=== PATIENT | female | born 1935 | race American Indian/Alaskan Native ===

== ENCOUNTER 2016-09-16 20:40 | Emergency (ER) | payer MEDICARE ==
[2016-09-16] MEDS ORDERED: MORPHINE IV ONE (21:51)
[2016-09-16] MEDS ORDERED: ZOFRAN IV ONE (21:51)
--- NOTE | 2016-09-16 21:57 | Emergency Department Report ---
ED Headache HPI - General Chief Complaint: Headache Stated Complaint: HEADACHE Time Seen by Provider: 09/16/16 21:51 Source: patient, family Exam Limitations: no limitations - History of Present Illness Initial Comments: Patient stated that her headache as noted on the right side she has a diagnosis of trigeminal neuralgia back in the . She stated that her headache is similar to what she used to have. Timing/Duration: 4-6 hours Quality: moderate Recent Head Trauma: chronic headaches Allergies/Adverse Reactions: Allergies No Known Allergies Allergy (Verified 09/15/15 15:02) Home Medications: Ambulatory Orders hydrOXYzine HCL [Atarax] 10 mg PO Q8H PRN #14 tablet 11/21/14 predniSONE [Deltasone] 20 mg PO BID 5 Days 11/21/14 Levofloxacin [Levaquin TAB] 500 mg PO QDAY #7 tablet 08/27/15 metroNIDAZOLE [Flagyl TAB] 500 mg PO Q12HR #7 tab 08/27/15 Lisinopril 40 mg PO DAILY 09/15/15 Omeprazole 20 mg PO DAILY 09/15/15 Simvastatin 40 mg PO DAILY 09/15/15 Biotin 1 tab PO DAILY 09/18/15 Centrum Silver Tablet 1 tab PO DAILY 09/18/15 Ondansetron [Zofran Odt] 4 mg PO Q4-6H PRN #14 tab.rapdis 09/16/16 carBAMazepine [TEGretol] 100 mg PO Q12H #30 tab.chew 09/16/16 oxyCODONE /ACETAMINOPHEN [Percocet 5/325] 1 tab PO Q6HR PRN #10 tablet 09/16/16 ED Review of Systems ROS: Stated complaint: HEADACHE Other details as noted in HPI Comment: All other systems reviewed and negative Constitutional: denies: chills, fever Eyes: denies: eye pain, vision change ENT: denies: dental pain Respiratory: denies: cough, shortness of breath Cardiovascular: denies: chest pain, palpitations Gastrointestinal: denies: abdominal pain, nausea, vomiting Neurological: headache. denies: weakness, numbness, paresthesias, confusion, abnormal gait ED Past Medical Hx - Past Medical History Hx Hypertension: Yes ((takes lisinopril) high cholesterol ) Hx GERD: Yes Hx Headaches / Migraines: Yes (Trigeminal neuralgia) Hx HIV: No Additional medical history: HIGH CHOLESTEROL - Surgical History Additional Surgical History: HEMORRHOIDECTOMY. COLON RESECTION - Social History Smoking Status: Never Smoker Substance Use Type: None - Medications Home Medications: Home Medications Medication Instructions Recorded Confirmed Last Taken Type hydrOXYzine HCL [Atarax] 10 mg PO Q8H PRN #14 tablet 11/21/14 09/15/15 Unknown Rx predniSONE [Deltasone] 20 mg PO BID 5 Days 11/21/14 09/15/15 Unknown Rx Levofloxacin [Levaquin TAB] 500 mg PO QDAY #7 tablet 08/27/15 09/15/15 Unknown Rx metroNIDAZOLE [Flagyl TAB] 500 mg PO Q12HR #7 tab 08/27/15 09/15/15 Unknown Rx Lisinopril 40 mg PO DAILY 09/15/15 09/18/15 09/18/15 History Omeprazole 20 mg PO DAILY 09/15/15 09/18/15 09/12/15 History Simvastatin 40 mg PO DAILY 09/15/15 09/18/15 09/12/15 History Biotin 1 tab PO DAILY 09/18/15 09/18/15 09/04/15 History Centrum Silver Tablet 1 tab PO DAILY 09/18/15 09/18/15 09/04/15 History Ondansetron [Zofran Odt] 4 mg PO Q4-6H PRN #14 tab.rapdis 09/16/16 Unknown Rx carBAMazepine [TEGretol] 100 mg PO Q12H #30 tab.chew 09/16/16 Unknown Rx oxyCODONE /ACETAMINOPHEN [Percocet 1 tab PO Q6HR PRN #10 tablet 09/16/16 Unknown Rx 5/325] ED Physical Exam - General Limitations: No Limitations General appearance: alert, in distress (secondary to pain) - Head Head exam: Present: atraumatic, normocephalic, normal inspection - Eye Eye exam: Present: normal appearance, PERRL, EOMI. Absent: scleral icterus, conjunctival injection, nystagmus, periorbital swelling, periorbital tenderness - ENT ENT exam: Present: normal exam - Neck Neck exam: Present: normal inspection, full ROM. Absent: tenderness, meningismus - Respiratory Respiratory exam: Present: normal lung sounds bilaterally. Absent: respiratory distress, wheezes, rhonchi, chest wall tenderness, accessory muscle use - Cardiovascular Cardiovascular Exam: Present: regular rate, normal rhythm, normal heart sounds - GI/Abdominal GI/Abdominal exam: Present: soft. Absent: distended, tenderness, guarding, rebound, rigid - Neurological Exam Neurological exam: Present: alert, oriented X3, CN II-XII intact, normal gait. Absent: altered, motor sensory deficit - Psychiatric Psychiatric exam: Present: normal affect, normal mood - Skin Skin exam: Present: warm, intact ED Course Vital Signs 09/16/16 21:22 Temperature 98.2 F Pulse Rate 60 Respiratory 18 Rate Blood Pressure 185/75 O2 Sat by Pulse 99 Oximetry - Reevaluation(s) Reevaluation #1: 09/16/16 23:18 Patient stated that she is feeling much better headache is completely resolved ED Medical Decision Making - Lab Data Result diagrams: 09/16/16 22:05 Critical care attestation.: If time is entered above; I have spent that time in minutes in the direct care of this critically ill patient, excluding procedure time. ED Disposition Clinical Impression: Headache, Trigeminal neuralgia of right side of face Disposition: DC-01 TO HOME OR SELFCARE Is pt being admited?: No Condition: Stable Instructions: Trigeminal Neuralgia (ED) Prescriptions: carBAMazepine [TEGretol] 100 mg PO Q12H #30 tab.chew Ondansetron [Zofran Odt] 4 mg PO Q4-6H PRN #14 tab.rapdis PRN Reason: Nausea And Vomiting oxyCODONE /ACETAMINOPHEN [Percocet 5/325] 1 tab PO Q6HR PRN #10 tablet PRN Reason: Pain
[2016-09-16 22:16] LABS: Eosinophils % (Auto) 0.9 % (0.0-4.3); Hematocrit 38.1 % (30.3-42.9); Hemoglobin 12.7 gm/dl (10.1-14.3); Mean Corpuscular HGB Conc 33 % (30-34); Mean Corpuscular Hemoglobin 30 pg (28-32); Mean Corpuscular Volume 90 fl (79-97); Platelet Count 197 K/mm3 (140-440); Red Blood Count 4.25 M/mm3 (3.65-5.03); Red Cell Distribution Width 13.2 % (13.2-15.2); White Blood Count 6.1 K/mm3 (4.5-11.0)
[2016-09-16 23:18] LABS: Albumin 4.1 g/dL (3.9-5); Albumin/Globulin Ratio 1.3 %; BUN/Creatinine Ratio 10.83; Bilirubin,Total 0.2 mg/dL (0.1-1.2); Calcium 9.3 mg/dL (8.4-10.2); Chloride 100.4 mmol/L (98-107); Potassium 4.4 mmol/L (3.6-5.0); Total Protein 7.2 g/dL (6.3-8.2)
[2016-09-16 23:39] VITALS: BP 165/79
== END 2016-09-16 23:40 | disposition home or self-care (01) ==
LOC: ED 20:40
DX: G50.0 Trigeminal neuralgia (principal); R51 Headache; I10 Essential (primary) hypertension; E78.00 Pure hypercholesterolemia, unspecified; K21.9 Gastro-esophageal reflux disease without esophagitis
CPT/HCPCS: 36415; 80053; 85025; 96374; 96375; 99283; J2270; J2405